=== PATIENT | female | born 1975 | race Caucasian/White ===

== ENCOUNTER 2018-10-18 05:55 | Inpatient (IN) | payer OTHER ==
[~2018-10-18] VITALS: Ht 170.2 cm; Wt 122.9 kg
[2018-10-18] VITALS (8 sets, daily range): BP systolic 135–158; BP diastolic 75–94
[2018-10-18] MEDS ORDERED: SODIUM CHLORIDE 0.9% 1,000 ML IV ONE (06:16)
[2018-10-18] MEDS ORDERED: LEVETIRACETAM 1000MG/100ML 100 ML IV ONE (06:30)
[2018-10-18 06:35] LABS: HEMATOCRIT. 38.2 % (36.0-48.0); HEMOGLOBIN. 13.2 g/dL (12.0-16.0); MEAN CORPUSCULAR HEMOGLOBIN 32.1 pg (28.0-32.0); MEAN CORPUSCULAR VOLUME 92.8 fL (81.0-99.0); MEAN PLATELET VOLUME 7.3 fl (7.4-10.4); PLATELET 257 x1000/uL (130-400); RED BLOOD CELL COUNT 4.11 mill/uL (4.2-5.4); RED CELL DISTRIBUTION WIDTH 13.1 % (11.6-14.6)
[2018-10-18 06:44] LABS: CHLORIDE 111 mEq/L (98-107)
[2018-10-18 06:45] LABS: PROTHROMBIN TIME 10.8 sec (9.6-11.0)
[2018-10-18 06:47] LABS: HCG SCREEN NEGATIVE
[2018-10-18 06:48] LABS: ETHANOL BLOOD < 10 mg/dL
[2018-10-18 06:52] LABS: CREATINE KINASE 144 IU/L (26-192)
[2018-10-18 06:58] LABS: CARBAMAZEPINE < 0.5 ug/mL (4-12); PHENOBARBITAL < 2.1 ug/mL (15.0-40.0); VALPROIC ACID < 3.0 ug/mL (50-100)
[2018-10-18 07:43] LABS: PLATELET ESTIMATE NORMAL
[2018-10-18 07:48] LABS: CLARITY URINE TURBID (CLEAR); COLOR URINE YELLOW (YELLOW); KETONES URINE NEGATIVE (NEGATIVE); LEUKOCYTE ESTERASE URINE NEGATIVE (NEGATIVE); NITRITE URINE NEGATIVE (NEGATIVE); OCCULT BLOOD URINE 1+ (NEGATIVE); PH URINE 5.5 (4.5-8.0); PROTEIN URINE TRACE (NEGATIVE); SPECIFIC GRAVITY URINE 1.019 (1.005-1.030)
[2018-10-18 08:16] LABS: *AMPHETAMINES SCREEN URINE NEGATIVE (NEGATIVE)
[2018-10-18 08:18] LABS: *BARBITURATES SCREEN URINE NEGATIVE (NEGATIVE); *BENZODIAZEPINES SCREEN URINE PRESUMTIVE POSITIVE (NEGATIVE); *COCAINE SCREEN URINE NEGATIVE (NEGATIVE); CANNABINOID URINE SCREEN PRESUMTIVE POSITIVE (NEGATIVE); METHADONE URINE SCREEN NEGATIVE (NEGATIVE); OPIATES URINE SCREEN NEGATIVE (NEGATIVE); PHENCYCLIDINE URINE SCREEN NEGATIVE (NEGATIVE)
[2018-10-18] MEDS ORDERED: LIDOCAINE HCL/PF 1% 2ML VIAL ONE (09:13)
[2018-10-18] MEDS ORDERED: IPRATROPIUM/ALBUTEROL 0.5-3(2.5)MG/3ML NEB INH PRN (11:00)
[2018-10-18] MEDS ORDERED: DIPHENHYDRAMINE 50MG/ML VIAL IV PRN (11:00)
[2018-10-18] MEDS ORDERED: LORAZEPAM 2MG/ML CPJ IV PRN (11:00)
[2018-10-18] MEDS ORDERED: ACETAMINOPHEN 650MG SUPP PR PRN (11:00)
[2018-10-18] MEDS ORDERED: HYDRALAZINE 20MG/ML VIAL IV PRN (11:00)
[2018-10-18 11:45] LABS: BG BASE EXCESS -1.2 mmol/L (-2.0-2.0); BG CARBOXYHEMOGLOBIN 0.6 % (0.5-1.5); BG DEOXYHEMOGLOBIN 4.3 % (0.0-5.0); BG FRACTION INSPIRED OXYGEN 21; BG HCO3 ACT 22.4 mmol/L (22.0-26.0); BG METHEMOGLOBIN 0.1 % (0.0-1.5); BG OXYGEN SATURATION 95.7 % (92.0-98.5); BG PCO2 34.2 mmHg (35.0-45.0); BG PH 7.434 (7.350-7.450); BG PO2 78.4 mmHg (75.0-100.0); BG SAMPLE SITE RIGHT BRACHIAL; BG TOTAL HEMOGLOBIN 13.3 g/dL (12.0-18.0); BG VENT MODE ROOM AIR
[2018-10-18] MEDS: PIPERACILLIN/TAZ 3.375G PREMIX 50 ML IV SCH ×2 (12:56→21:05)
[2018-10-18] MEDS: FAMOTIDINE 20MG/2ML VIAL IV SCH ×2 (12:56→21:05)
[2018-10-18] MEDS: DEXT 5%/0.45% NACL 1000ML 1,000 ML IV SCH (12:56)
[2018-10-18] MEDS: ENOXAPARIN 40MG/0.4ML SYR SUBCUT SCH (12:57)
[2018-10-18] MEDS ORDERED: ACETAMINOPHEN 650MG/20.3ML UDC PO PRN (13:00)
[2018-10-18] MEDS: AMLODIPINE 5MG TABLET PO SCH (13:29)
[2018-10-18] MEDS ORDERED: PNEUMOCOCCAL 23-VAL P-SAC VAC 0.5 ML IM ONE (14:00)
[2018-10-18] MEDS: HYDROCODONE/ACETAMINOPHEN 5/325MG TABLET PO PRN ×2 (15:28→20:05)
[2018-10-18 16:27] LABS: CREATINE KINASE MB FRACTION 4.7 ng/mL (0.5-3.6)
[2018-10-18] MEDS: LEVETIRACETAM 500 MG in SODIUM CHLORIDE 0.9% 100 ML IV SCH (21:18)
[2018-10-19] VITALS: BP 129/83
[2018-10-19] MEDS: ENOXAPARIN 40MG/0.4ML SYR SUBCUT SCH ×3 (00:07→21:55)
[2018-10-19] MEDS: PIPERACILLIN/TAZ 3.375G PREMIX 50 ML IV SCH ×4 (00:08→19:28)
[2018-10-19 00:34] LABS: CREATINE KINASE MB FRACTION 2.7 ng/mL (0.5-3.6)
[2018-10-19 05:18] VITALS: BP 141/82
[2018-10-19] MEDS: DEXT 5%/0.45% NACL 1000ML 1,000 ML IV SCH ×2 (05:26→14:22)
[2018-10-19] MEDS: HYDROCODONE/ACETAMINOPHEN 5/325MG TABLET PO PRN ×3 (05:27→17:48)
[2018-10-19 06:00] VITALS: BP 133/66
[2018-10-19 07:27] LABS: BASOPHILS % 0.7 % (0.0-2.0); EOSINOPHILS % 0.9 % (0.0-5.0); HEMATOCRIT. 35.3 % (36.0-48.0); HEMOGLOBIN. 11.9 g/dL (12.0-16.0); LYMPHOCYTES % 26.1 % (20.0-50.0); MEAN CORPUSCULAR HEMOGLOBIN 31.5 pg (28.0-32.0); MEAN CORPUSCULAR VOLUME 93.2 fL (81.0-99.0); MEAN PLATELET VOLUME 7.8 fl (7.4-10.4); MONOCYTES % 11.4 % (2.0-8.0); NEUTROPHILS % 60.9 % (40.0-76.0); PLATELET 226 x1000/uL (130-400); RED BLOOD CELL COUNT 3.79 mill/uL (4.2-5.4); RED CELL DISTRIBUTION WIDTH 13.4 % (11.6-14.6)
[2018-10-19 07:44] LABS: CHLORIDE 110 mEq/L (98-107)
[2018-10-19 07:56] LABS: HDL CHOLESTEROL 37 mg/dL (40-59); T4 FREE 1.17 ng/dL (0.76-1.46)
[2018-10-19 08:00] VITALS: BP 145/76
[2018-10-19 08:06] LABS: LDL CHOLESTEROL 82 mg/dL (5-100)
[2018-10-19] MEDS: LEVETIRACETAM 500 MG in SODIUM CHLORIDE 0.9% 100 ML IV SCH ×2 (09:57→23:57)
[2018-10-19] MEDS: FAMOTIDINE 20MG/2ML VIAL IV SCH ×2 (09:57→21:54)
[2018-10-19] MEDS: AMLODIPINE 5MG TABLET PO SCH ×2 (09:57→21:00)
[2018-10-19] MEDS ORDERED: POTASSIUM CHLORIDE 20MEQ TABLET SR PO NR ×3 (10:30→22:00)
[2018-10-19 11:58] VITALS: BP 182/101
[2018-10-19] MEDS ORDERED: IBUPROFEN 400MG TABLET PO PRN (12:00)
[2018-10-19 13:58] LABS: TOTAL IRON BINDING CAPACITY 215 ug/dL (250-450)
[2018-10-19] MEDS ORDERED: POTASSIUM CHLORIDE 20MEQ TABLET SR PO SCH (14:30)
[2018-10-19] MEDS ORDERED: LORAZEPAM 2MG/ML CPJ IV PRN (15:00)
[2018-10-19] MEDS: ONDANSETRON HCL 4MG/2ML INJ IV PRN (16:03)
[2018-10-19] MEDS ORDERED: SODIUM CHLORIDE 0.9% 500 ML IV ONE (16:15)
[2018-10-19 19:35] LABS: CREATINE KINASE 638 IU/L (26-192); CREATINE KINASE MB FRACTION < 1.0 ng/mL (0.5-3.6)
[2018-10-19 20:00] VITALS: BP 165/83
[2018-10-20] VITALS: BP 146/83
[2018-10-20] MEDS: PIPERACILLIN/TAZ 3.375G PREMIX 50 ML IV SCH ×4 (01:19→17:56)
[2018-10-20] MEDS: DEXT 5%/0.45% NACL 1000ML 1,000 ML IV SCH ×3 (03:10→21:11)
[2018-10-20 04:00] VITALS: BP 158/83
[2018-10-20 06:40] LABS: HEMATOCRIT 34.5 % (36.0-48.0); HEMOGLOBIN 12.2 g/dL (12.0-16.0); MEAN CORPUSCULAR HEMOGLOBIN 32.5 pg (28.0-32.0); MEAN CORPUSCULAR VOLUME 91.8 fL (81.0-99.0); PLATELET 247 x1000/uL (130-400); RED BLOOD CELL COUNT 3.75 mill/uL (4.2-5.4); RED CELL DISTRIBUTION WIDTH 13.3 % (11.6-14.6)
[2018-10-20 06:54] LABS: CHLORIDE 110 mEq/L (98-107)
[2018-10-20 07:03] LABS: HDL CHOLESTEROL 35 mg/dL (40-59)
[2018-10-20 07:04] LABS: LDL CHOLESTEROL 102 mg/dL (5-100)
[2018-10-20 07:06] LABS: CREATINE KINASE 499 IU/L (26-192)
[2018-10-20 07:09] LABS: CREATINE KINASE MB FRACTION < 1.0 ng/mL (0.5-3.6)
[2018-10-20 08:00] VITALS: BP 147/52
[2018-10-20] MEDS: FAMOTIDINE 20MG/2ML VIAL IV SCH ×2 (09:33→21:10)
[2018-10-20] MEDS: LEVETIRACETAM 500 MG in SODIUM CHLORIDE 0.9% 100 ML IV SCH ×2 (09:33→21:10)
[2018-10-20] MEDS: ENOXAPARIN 40MG/0.4ML SYR SUBCUT SCH ×2 (09:33→21:11)
[2018-10-20 12:00] VITALS: BP 156/98
[2018-10-20] MEDS: ONDANSETRON HCL 4MG/2ML INJ IV PRN (12:46)
[2018-10-20] MEDS: AMLODIPINE 5MG TABLET PO SCH ×2 (12:54→21:11)
[2018-10-20 16:00] VITALS: BP 154/97
[2018-10-20 20:00] VITALS: BP 142/71
[2018-10-20] MEDS: HYDROCODONE/ACETAMINOPHEN 5/325MG TABLET PO PRN (22:13)
[2018-10-21] VITALS: BP 141/82
[2018-10-21] MEDS: PIPERACILLIN/TAZ 3.375G PREMIX 50 ML IV SCH ×3 (00:43→12:39)
[2018-10-21 04:00] VITALS: BP 137/78
[2018-10-21 07:54] LABS: CHLORIDE 110 mEq/L (98-107)
[2018-10-21 08:00] VITALS: BP 147/61
[2018-10-21 08:03] LABS: HEMATOCRIT 38.1 % (36.0-48.0); MEAN CORPUSCULAR HEMOGLOBIN 31.5 pg (28.0-32.0); MEAN CORPUSCULAR VOLUME 91.9 fL (81.0-99.0); PLATELET 257 x1000/uL (130-400); RED BLOOD CELL COUNT 4.14 mill/uL (4.2-5.4); RED CELL DISTRIBUTION WIDTH 13.1 % (11.6-14.6)
[2018-10-21] MEDS: FAMOTIDINE 20MG/2ML VIAL IV SCH (10:02)
[2018-10-21] MEDS: AMLODIPINE 5MG TABLET PO SCH (10:02)
[2018-10-21] MEDS: ONDANSETRON HCL 4MG/2ML INJ IV PRN (10:02)
[2018-10-21] MEDS: LEVETIRACETAM 500 MG in SODIUM CHLORIDE 0.9% 100 ML IV SCH (10:03)
[2018-10-21] MEDS: ENOXAPARIN 40MG/0.4ML SYR SUBCUT SCH (10:03)
[2018-10-21] MEDS ORDERED: POTASSIUM CHLORIDE 20MEQ TABLET SR PO NR ×2 (11:00→18:00)
[2018-10-21] MEDS ORDERED: LOSARTAN POTASSIUM 25 MG TABLET PO SCH (11:15)
[2018-10-21 12:00] VITALS: BP 141/75
[2018-10-21 13:48] VITALS: BP 147/87
[2018-10-21] MEDS ORDERED: ENOXAPARIN 30MG/0.3ML SYR SUBCUT SCH (21:00)
== END 2018-10-21 16:15 | disposition home or self-care (01) | DRG 53 ==
LOC: ER 05:55 → 5EST 08:54 → EDBEDREQ 09:04 → EDBEDREQTM 09:06 → ENRESERV 10:01 → 7WST 10-19 15:30
PROVIDERS: ADMIT Internal Medicine; ATTEND Internal Medicine
PROC: 4A00X4Z Measurement of Central Nervous Electrical Activity, External Approach (ICD-10-PCS; principal; 2018-10-21)
DX: G40.909 Epilepsy, unspecified, not intractable, without status epilepticus (principal); M62.82 Rhabdomyolysis; E66.01 Morbid (severe) obesity due to excess calories; E83.51 Hypocalcemia; Z68.41 Body mass index [BMI] 40.0-44.9, adult; E86.0 Dehydration; N39.0 Urinary tract infection, site not specified; K42.9 Umbilical hernia without obstruction or gangrene; E87.6 Hypokalemia; F12.90 Cannabis use, unspecified, uncomplicated; I10 Essential (primary) hypertension; G43.909 Migraine, unspecified, not intractable, without status migrainosus; R00.1 Bradycardia, unspecified
CPT/HCPCS: 36415; 36600; 70551; 71045; 74176; 80048; 80061; 80156; 80165; 80184; 80185; 80305; 80320; 82375; 82550; 82553; 82607; 82746; 82805; 83540; 83550; 83735; 83880; 84132; 84439; 84443; 84484; 84703; 85027; 85379; 90732; 93005; 93306; 95816; 97162; J1650; J1953; J2405; J2543; J3490; J7030; J7040; J7042; J7050; G0480